=== PATIENT | female | born 1960 | race African-American/Black ===

== ENCOUNTER 2023-11-04 06:41 | Day surgery (SDC) | payer OTHER ==
[~2023-11-04] VITALS: Ht 152.4 cm; Wt 29.8 kg
[~2023-11-04 06:41] MED LIST: CALC-894 PO; DOCU-412 PO; IBAN150T16 PO; MULT-248 PO; POLY17PO6 PO; [UNRECOGNIZED DRUG - CODE] PO
[2023-11-04] MEDS ORDERED: RINGERS SOLUTION,LACTATED 1,000 ML IV ONE (07:21)
[2023-11-04] MEDS ORDERED: BACL10TA PO (07:29)
[2023-11-04] MEDS ORDERED: METO25 PO (07:29)
[2023-11-04] MEDS ORDERED: AMLO-258 PO (07:29)
[2023-11-04 07:43] LABS: BASOPHILS % (AUTO) 0.7 % (0.0-2.0); EOSINOPHILS % (AUTO) 2.1 % (1.0-6.0); HEMATOCRIT 34.2 % (36-46); HEMOGLOBIN 10.7 g/dL (12.0-16.0); LYMPHOCYTES # (AUTO) 1.6 K/uL (1.0-4.8); LYMPHOCYTES % (AUTO) 34.3 % (22.0-44.0); MEAN CORPUSCULAR HEMOGLOBIN 20.8 pg (26.0-34.0); MEAN CORPUSCULAR HGB CONC 31.2 G/dL (31.0-37.0); MEAN CORPUSCULAR VOLUME 67 fL (80-100); MONOCYTES # (AUTO) 0.6 K/uL (0.1-1.0); MONOCYTES % (AUTO) 13.6 % (2.0-9.0); NEUTROPHILS # (AUTO) 2.3 K/uL (1.8-7.7); NEUTROPHILS % (AUTO) 49.3 % (40.0-70.0); PLATELET COUNT (AUTO) 327 K/uL (150-450); RED BLOOD CELL COUNT(AUTO) 5.11 MIL/uL (4.00-5.20); RED CELL DISTRIBUTION WIDTH 16.1 % (11.5-14.5); WHITE BLOOD COUNT (AUTO) 4.6 K/uL (4.5-11.0)
[2023-11-04 07:52] LABS: ANION GAP 11 mmol/L (8-16); CALCIUM, TOTAL 8.6 mg/dL (8.8-10.5); CARBON DIOXIDE 25 mmol/L (22-29); CHLORIDE 104 mmol/L (98-107); CREATININE 0.92 mg/dL (0.60-1.30); GLOMERULAR FILTR. RATE CALC > 60 mL/min (>60); GLUCOSE,RANDOM 102 mg/dL (70-110); POTASSIUM 3.7 mmol/L (3.5-5.1); SODIUM SERUM 140 mmol/L (136-145); UREA NITROGEN, BLOOD 16 mg/dL (7-18)
[2023-11-04 07:58] LABS: ALANINE AMINOTRANSFERASE 18 U/L (12-78); ALBUMIN 3.6 g/dL (3.4-5.0); ALKALINE PHOSPHATASE 78 U/L (46-116); ASPARTATE AMINOTRANSFERASE 17 U/L (15-37); BILIRUBIN,TOTAL 0.1 mg/dL (0.1-1.0); TOTAL PROTEIN, SERUM 8.7 g/dL (6.4-8.2)
[2023-11-04 08:01] LABS: PROTHROMBIN TIME 10.3 SEC (9.4-11.6)
[2023-11-04] MEDS ORDERED: AMPICILLIN SODIUM 2 GM/NS 100 ML IV ONE (08:06)
[2023-11-04 08:27] LABS: RBC MORPHOLOGY COMMENT ABNORMAL RBC MORPH
[2023-11-04] MEDS: RINGERS SOLUTION,LACTATED 1,000 ML IV ONE (10:30)
== END 2023-11-04 14:20 | disposition home or self-care (01) ==
LOC: SURGERY 06:41
PROVIDERS: ATTEND Dentist General Practice
DX: K02.9 Dental caries, unspecified (principal); K05.6 Periodontal disease, unspecified; I10 Essential (primary) hypertension
CPT/HCPCS: 71045; 80053; 85025; 85610; 85730; 93005; J0290; J7120; 36415-L1; 36415-TC